=== PATIENT | male | born 1980 | race Two or more races ===

== ENCOUNTER 2019-03-24 16:28 | Emergency (ER) | payer SELFPAY ==
[~2019-03-24] VITALS: Ht 170.2 cm; Wt 105.0 kg
[2019-03-24] MEDS ORDERED: LIB10 PO (16:33)
[2019-03-24] MEDS ORDERED: IBUP-2354 PO (16:33)
[2019-03-24] MEDS ORDERED: METHOCARBAMOL 500 MG TABLET PO ONE (18:15)
[2019-03-24 19:32] VITALS: BP 132/97
== END 2019-03-24 19:30 | disposition home or self-care (01) ==
LOC: EMS 16:31
DX: S39.012A Strain of muscle, fascia and tendon of lower back, initial encounter (principal); R76.11 Nonspecific reaction to tuberculin skin test without active tuberculosis; X50.9XXA Other and unspecified overexertion or strenuous movements or postures, initial encounter; Y93.66 Activity, soccer; Y92.89 Other specified places as the place of occurrence of the external cause; Y99.8 Other external cause status